=== PATIENT | male | born 1975 | race Caucasian/White ===

== ENCOUNTER 2017-05-02 07:43 | Emergency (ER) | payer OTHER, BC ==
[~2017-05-02] VITALS: Ht 185.4 cm; Wt 123.6 kg
[2017-05-02] MEDS ORDERED: NAPROSYN500 MG PO (10:25)
[2017-05-02] MEDS ORDERED: FLEXERIL10 MG PO (10:25)
[2017-05-02 10:47] VITALS: BP 152/84
== END 2017-05-02 10:48 | disposition home or self-care (01) ==
LOC: EME 07:43
DX: S00.03XA Contusion of scalp, initial encounter (principal); S16.1XXA Strain of muscle, fascia and tendon at neck level, initial encounter; I10 Essential (primary) hypertension; V43.52XA Car driver injured in collision with other type car in traffic accident, initial encounter; Y92.410 Unspecified street and highway as the place of occurrence of the external cause
CPT/HCPCS: 70450; 72125; 99281; 99284